=== PATIENT | female | born 1965 | race Caucasian/White ===

== ENCOUNTER 2021-11-28 22:57 | Emergency (ER) | payer OTHER ==
[2021-11-28 23:16] VITALS: BP 146/82; PULSE 66; TEMP 98.3; BMI 36.9
[2021-11-29] MEDS ORDERED: ACETAMINOPHEN 1000 MG/100 ML BAG IVPB ONE (00:15)
[2021-11-29 01:39] LABS: BASO % 1.1 % (0-2.0); EOS % 2.4 % (0-4.5); HEMATOCRIT 38.4 % (32.4-45.2); HEMOGLOBIN 12.7 GM/dL (10.7-15.3); LYMPH % 39.8 % (8-40); MCH 28.7 pg (25.7-33.7); MEAN CELL VOLUME 87.2 fl (80-96); MEAN PLT VOLUME 8.9 fl (7.5-11.1); MONO % 5.3 % (3.8-10.2); NEUT % 51.4 % (42.8-82.8); PLATELET COUNT 241 10^3/uL (134-434); RDW 13.8 % (11.6-15.6); WHITE BLOOD COUNT 7.4 K/mm3 (4.0-10.0)
[2021-11-29] MEDS ORDERED: ACETAMINOPHEN INJECTION 100 ML IVPB ONE (01:43)
[2021-11-29 01:56] LABS: INR 0.98 (0.83-1.09); PROTHROMBIN TIME (PATIENT) 11.3 SEC (9.7-13.0)
[2021-11-29 01:58] LABS: ACTIVATED PTT 34.1 SECONDS (25.2-36.5)
[2021-11-29 02:04] LABS: CALCIUM 9.1 mg/dL (8.5-10.1)
[2021-11-29 02:05] LABS: ALBUMIN 3.4 g/dl (3.4-5.0); BLOOD UREA NITROGEN 8.9 mg/dL (7-18)
[2021-11-29 02:08] LABS: CREATININE 0.7 mg/dL (0.55-1.3)
[2021-11-29 02:09] LABS: BILIRUBIN,TOTAL 0.2 mg/dL (0.2-1); TOT PROT 7.1 g/dl (6.4-8.2)
[2021-11-29 03:22] LABS: EPI CELLS 18 /uL (0-25.1); HYALINE CASTS 1 /uL (0-3.1); PH,URINE 5.5 (5.0-8.0); URINE APPEARANCE CLEAR; URINE BACTERIA 261 /uL (0-1359); URINE BILIRUBIN NEGATIVE (NEGATIVE); URINE COLOR YELLOW; URINE GLUCOSE (UA) NEGATIVE (NEGATIVE); URINE KETONE NEGATIVE (NEGATIVE); URINE LEUK ESTERASE NEGATIVE (NEGATIVE); URINE NITRITE NEGATIVE (NEGATIVE); URINE PROTEIN NEGATIVE (NEGATIVE); URINE RBC 6 /uL (0-23.9); URINE UROBILINOGEN 0.2 mg/dL (0.2-1.0); URINE WBC 21 /uL (0-25.8)
== END 2021-11-29 05:44 | disposition home or self-care (01) ==
LOC: JER 22:57
PROC: 3E033GC Introduction of Other Therapeutic Substance into Peripheral Vein, Percutaneous Approach (ICD-10-PCS; principal; 2021-11-28)
DX: R10.11 Right upper quadrant pain (principal)
CPT/HCPCS: 36415; 71045-TC-FY; 74176-TC; 76705-TC; 80053; 81003; 83605; 83690; 84484; 85025; 85610; 85730; 87086; 93005; 93010; 99285-25

== ENCOUNTER 2022-02-23 16:26 | Emergency (ER) | payer OTHER ==
[2022-02-23 16:38] VITALS: BP 138/81; PULSE 66; RESP 18; TEMP 98.5; BMI 34.9
[2022-02-23] MEDS ORDERED: DEXAMETHASONE SOD PHOSPHATE 10 MG/1 ML VIAL IM ONE (17:17)
[2022-02-23] MEDS ORDERED: ALBUTEROL SO4 2.5/IPRATROPIUM 0.5 INH SOL 3 ML VIAL.NEB. NEB ONE ×2 (17:17→17:21)
[2022-02-23] MEDS ORDERED: DEXAMETHASONE SOD PHOSPHATE 10 MG/1 ML VIAL ONE (17:22)
== END 2022-02-23 19:27 | disposition home or self-care (01) ==
LOC: JERFT 16:26 → JER 16:26 → JERFT 19:27
PROC: 3E0F7GC Introduction of Other Therapeutic Substance into Respiratory Tract, Via Natural or Artificial Opening (ICD-10-PCS; principal; 2022-02-23)
PROC: 3E0233Z Introduction of Anti-inflammatory into Muscle, Percutaneous Approach (ICD-10-PCS; 2022-02-23)
DX: R05.1 Acute cough (principal)
CPT/HCPCS: 71046-TC-FY; 99284-25; J1100

== ENCOUNTER 2022-06-16 11:01 | Emergency (ER) | payer OTHER ==
[2022-06-16 11:15] VITALS: PULSE 73; RESP 16; TEMP 97.4; BMI 32.7
[2022-06-16] MEDS ORDERED: ACETAMINOPHEN 500 MG TABLET (FP) PO ONE (12:23)
[2022-06-16] MEDS ORDERED: ACETAMINOPHEN 500 MG TABLET (FP) ONE (12:27)
[2022-06-16 12:52] LABS: EPI CELLS 6 /uL (0-25.1); HYALINE CASTS 0 /uL (0-3.1); URINE APPEARANCE CLEAR; URINE BACTERIA 457 /uL (0-1359); URINE BILIRUBIN NEGATIVE (NEGATIVE); URINE COLOR YELLOW; URINE GLUCOSE (UA) NEGATIVE (NEGATIVE); URINE KETONE NEGATIVE (NEGATIVE); URINE LEUK ESTERASE 2+ (NEGATIVE); URINE NITRITE NEGATIVE (NEGATIVE); URINE PROTEIN NEGATIVE (NEGATIVE); URINE RBC 18 /uL (0-23.9); URINE UROBILINOGEN 0.2 mg/dL (0.2-1.0); URINE WBC 258 /uL (0-25.8)
[2022-06-16 13:28] VITALS: BP 145/67
== END 2022-06-16 13:28 | disposition home or self-care (01) ==
LOC: JERFT 11:01
DX: N30.00 Acute cystitis without hematuria (principal)
CPT/HCPCS: 81003; 87086; 87186; 99283-25

== ENCOUNTER 2022-10-31 16:44 | Emergency (ER) | payer OTHER ==
[2022-10-31 16:50] VITALS: BP 150/70; PULSE 67; RESP 18; TEMP 98.1; BMI 33.4
[2022-10-31] MEDS ORDERED: LIDOCAINE 5% TOPICAL PATCH TP ONE (17:37)
[2022-10-31] MEDS ORDERED: ACETAMINOPHEN 500 MG TABLET (FP) PO ONE (17:37)
[2022-10-31] MEDS ORDERED: ACETAMINOPHEN 325 MG TABLET (FP) ONE (17:43)
[2022-10-31] MEDS ORDERED: LIDOCAINE 5% TOPICAL PATCH ONE (17:43)
[2022-10-31] MEDS ORDERED: LIDOCAINE PATCH REMOVAL MC SCH (22:00)
== END 2022-10-31 17:55 | disposition home or self-care (01) ==
LOC: JERFT 16:44
DX: R51.9 Headache, unspecified (principal); M54.2 Cervicalgia; V43.52XA Car driver injured in collision with other type car in traffic accident, initial encounter
CPT/HCPCS: 99283-25

== ENCOUNTER 2024-03-16 17:34 | Emergency (ER) | payer OTHER ==
[2024-03-16 17:39] VITALS: BP 132/84; PULSE 57; RESP 16; TEMP 97.9; BMI 35.6
[2024-03-16] MEDS ORDERED: ACETAMINOPHEN INJECTION 100 ML ONE (18:35)
[2024-03-16] MEDS ORDERED: LIDOCAINE 5% TOPICAL PATCH ONE (18:35)
[2024-03-16] MEDS: LIDOCAINE 5% TOPICAL PATCH TP ONE (18:53)
[2024-03-16] MEDS: ACETAMINOPHEN 1000 MG/100 ML BAG IVPB ONE (18:53)
[2024-03-16 18:59] LABS: BASO % 0.8 % (0-2.0); EOS % 2.1 % (0-4.5); HEMATOCRIT 41.4 % (32.4-45.2); HEMOGLOBIN 13.8 GM/dL (10.7-15.3); LYMPH % 35.6 % (8-40); MCH 28.6 pg (25.7-33.7); MCHC 33.4 g/dl (32.0-36.0); MEAN CELL VOLUME 85.9 fl (80-96); MEAN PLT VOLUME 9.6 fl (7.5-11.1); NEUT % 57.5 % (42.8-82.8); PLATELET COUNT 244 10^3/uL (134-434); RBC 4.82 M/mm3 (3.60-5.2); RDW 14.1 % (11.6-15.6); WHITE BLOOD COUNT 7.1 K/mm3 (4.0-10.0)
[2024-03-16 19:02] LABS: INR 1.05 (0.83-1.09); PROTHROMBIN TIME (PATIENT) 11.8 SEC (9.7-13.0)
[2024-03-16 19:05] LABS: ACTIVATED PTT 27.5 SECONDS (25.2-36.5)
[2024-03-16 19:08] LABS: POTASSIUM 3.9 mmol/L (3.5-5.1)
[2024-03-16 19:11] LABS: ALBUMIN 3.9 g/dl (3.4-5.0); BLOOD UREA NITROGEN 12.8 mg/dL (7-18)
[2024-03-16 19:12] LABS: CALCIUM 9.6 mg/dL (8.5-10.1)
[2024-03-16 19:15] LABS: BILIRUBIN,TOTAL 0.4 mg/dL (0.2-1); TOT PROT 7.5 g/dl (6.4-8.2)
[2024-03-16 20:06] LABS: CREATININE 0.7 mg/dL (0.55-1.3)
[2024-03-17] MEDS ORDERED: LIDOCAINE PATCH REMOVAL MC SCH (07:00)
== END 2024-03-16 19:52 | disposition home or self-care (01) ==
LOC: JER 17:34
PROC: 3E033NZ Introduction of Analgesics, Hypnotics, Sedatives into Peripheral Vein, Percutaneous Approach (ICD-10-PCS; principal; 2024-03-16)
DX: R07.89 Other chest pain (principal)
CPT/HCPCS: 36415; 71046-TC-FY; 80053; 84484; 85025; 85610; 85730; 93005; 93010; 99285-25; J0131

== ENCOUNTER 2024-08-10 18:50 | Emergency (ER) | payer OTHER ==
[2024-08-10 18:55] VITALS: BP 115/62; PULSE 64; RESP 18; TEMP 99.2; BMI 32.3
[2024-08-10] MEDS ORDERED: ACETAMINOPHEN INJECTION 100 ML ONE (19:27)
[2024-08-10] MEDS ORDERED: morphine SULFATE 4 MG/ML VIAL ONE (19:27)
[2024-08-10] MEDS ORDERED: ONDANSETRON 4 MG/2 ML VIAL ONE (19:51)
[2024-08-10] MEDS: SODIUM CHLORIDE 0.9% 500 ML INFUS.BAG IV ONE (19:54)
[2024-08-10] MEDS: ONDANSETRON 4 MG/2 ML VIAL IVPB ONE (19:55)
[2024-08-10] MEDS: ACETAMINOPHEN 1000 MG/100 ML BAG IVPB ONE (19:55)
[2024-08-10 20:03] LABS: BASO % 0.8 % (0-2.0); EOS % 0.3 % (0-4.5); HEMATOCRIT 42.1 % (32.4-45.2); HEMOGLOBIN 13.7 GM/dL (10.7-15.3); LYMPH % 35.2 % (8-40); MCH 28.9 pg (25.7-33.7); MCHC 32.5 g/dl (32.0-36.0); MEAN CELL VOLUME 88.8 fl (80-96); MEAN PLT VOLUME 9.4 fl (7.5-11.1); MONO % 11.1 % (3.8-10.2); NEUT % 52.6 % (42.8-82.8); PLATELET COUNT 224 10^3/uL (134-434); RBC 4.74 M/mm3 (3.60-5.2); RDW 13.7 % (11.6-15.6); WHITE BLOOD COUNT 4.7 K/mm3 (4.0-10.0)
[2024-08-10 20:16] LABS: POTASSIUM 5.6 mmol/L (3.5-5.1)
[2024-08-10 20:19] LABS: ALBUMIN 3.9 g/dl (3.4-5.0); BLOOD UREA NITROGEN 13.8 mg/dL (7-18); MAGNESIUM 2.2 mg/dL (1.8-2.4)
[2024-08-10 20:22] LABS: CREATININE 0.9 mg/dL (0.55-1.3); PHOSPHOROUS 3.3 mg/dL (2.5-4.9)
[2024-08-10] MEDS: morphine SULFATE 4 MG/ML VIAL IVPUSH ONE (20:22)
[2024-08-10 20:23] LABS: BILIRUBIN,TOTAL 0.5 mg/dL (0.2-1); TOT PROT 7.8 g/dl (6.4-8.2)
[2024-08-10 20:48] LABS: URINE APPEARANCE CLEAR; URINE BILIRUBIN NEGATIVE (NEGATIVE); URINE COLOR YELLOW; URINE GLUCOSE (UA) NEGATIVE (NEGATIVE); URINE KETONE 1+ (NEGATIVE); URINE LEUK ESTERASE NEGATIVE (NEGATIVE); URINE NITRITE NEGATIVE (NEGATIVE); URINE PROTEIN NEGATIVE (NEGATIVE); URINE UROBILINOGEN 0.2 mg/dL (0.2-1.0)
== END 2024-08-10 21:53 | disposition home or self-care (01) ==
LOC: JER 18:50
PROC: 3E033NZ Introduction of Analgesics, Hypnotics, Sedatives into Peripheral Vein, Percutaneous Approach (ICD-10-PCS; principal; 2024-08-10)
PROC: 3E033GC Introduction of Other Therapeutic Substance into Peripheral Vein, Percutaneous Approach (ICD-10-PCS; 2024-08-10)
DX: R11.2 Nausea with vomiting, unspecified (principal); R19.7 Diarrhea, unspecified; R10.12 Left upper quadrant pain; R10.13 Epigastric pain; R50.9 Fever, unspecified; R51.9 Headache, unspecified; Z20.822 Contact with and (suspected) exposure to COVID-19
CPT/HCPCS: 0241U-QW; 36415; 74177-TC; 80053; 81003; 83690; 83735; 84100; 85025; 87086; 96374; 96375; 99285-25; J0131